=== PATIENT | female | born 1950 | race Asian ===

== ENCOUNTER 2017-09-03 13:46 | Outpatient (CLI) | payer MEDICARE, OTHER ==
--- NOTE | 2017-09-13 20:40 | Mammography Report ---
SCREENING MAMMOGRAM: 09/13/2017 INDICATION: A 67-year-old for screening. COMPARISON: The patient reports previous mammograms performed in 1996, which are not available for direct comparison. This will serve as a new baseline. TECHNIQUE: Routine CC and MLO projections were obtained of the breasts. FINDINGS: The breasts demonstrate fatty replacement bilaterally. A few punctate, typically benign calcifications are present, no suspicious masses, clustered microcalcifications, or regions of architectural distortion are identified. IMPRESSION: Benign FINDINGS. RECOMMENDATION: Routine annual screening unless otherwise clinically indicated. BIRADS CATEGORY - 2 BENIGN FINDINGS. STANDARD QUALIFYING STATEMENTS: 1. This examination was reviewed with the aid of Computer-Aided Detection (CAD). 2. A negative or benign imaging report should not delay biopsy if clinically suspicious findings are present. Consider surgical consultation if warranted. More than 5% of cancers are not identified by imaging. 3. Dense breasts may obscure an underlying neoplasm. TD: 09/13/2017 20:39
== END 2017-09-03 13:47 | disposition home or self-care (01) ==
LOC: DI.N 13:46
PROVIDERS: ATTEND Physician Assistant
DX: Z12.31 Encounter for screening mammogram for malignant neoplasm of breast (principal); Z80.3 Family history of malignant neoplasm of breast
CPT/HCPCS: 77067

== ENCOUNTER 2017-09-19 15:15 | Outpatient (CLI) | payer MEDICARE, OTHER ==
--- NOTE | 2017-09-23 17:00 | DEXA Report ---
DEXA SCAN: 09/19/2017 CLINICAL INDICATION: Postmenopausal. TECHNIQUE: Dual energy x-ray absorptiometry (DXA) was performed on a [employer] system. Regions measured are the AP spine, femoral neck, and, if needed, forearm. COMPARISON: None. In accordance with the International Society for Clinical Densitometry (ISCD) guidelines, data from previous exams may be reanalyzed using current recommendations and techniques. This is done to allow a more accurate basis for comparison with the current study. FINDINGS Data for the lumbar spine is as follows: REGION BMD (g/cm/cm) T-SCORE Z-SCORE L1 1.206 0.6 1.9 L2 1.443 2.0 3.3 L3 1.439 2.0 3.2 L4 1.254 0.4 1.7 L1-L4 1.340 1.3 2.6 NOTE: All evaluable vertebrae are used for classification. Data for the hip is as follows: REGION BMD (g/cm/cm) T-SCORE Z-SCORE Neck 1.044 0.0 1.3 TOTAL 1.049 0.3 1.3 NOTE: The femoral neck or total proximal femur, whichever is lowest, is used for classification. IMPRESSION: WHO CLASSIFICATION BASED ON THE INTERNATIONAL REFERENCE STANDARD IS NORMAL. FRACTURE RISK IS NOT INCREASED. RECOMMENDATION: Patients with diagnosis of osteoporosis or osteopenia should have regular bone mineral density assessment. For those eligible for Medicare, routine testing is allowed once every 2 years. Testing frequency can be increased for patients who have rapidly progressing disease or for those who are receiving medical therapy to restore bone mass. COMMENT World Health Organization (WHO) definitions for osteoporosis and osteopenia: NORMAL BMD: T-score at 1.0 or higher, fracture risk is low. OSTEOPENIA BMD: T-score between 1.0 and -2.5, fracture risk is increased. OSTEOPOROSIS BMD: T-score at 2.5 or lower, fracture risk high. National Osteoporosis Foundation recommends: 1. Obtain adequate dietary calcium (at least 1200 mg per day) and vitamin D ( 400-800 international units per day). 2. Participate, as appropriate, in regular weightbearing and muscle- strengthening exercise. 3. Avoid tobacco use and reduce alcohol and caffeine intake. 4. For more detailed information see the website at www.NOF.org. TD: 09/20/2017 11:47 [facility]
== END 2017-09-19 15:16 | disposition home or self-care (01) ==
LOC: DI 15:15
PROVIDERS: ATTEND Physician Assistant
DX: Z13.820 Encounter for screening for osteoporosis (principal); N95.8 Other specified menopausal and perimenopausal disorders
CPT/HCPCS: 77080

== ENCOUNTER 2018-10-27 10:21 | Outpatient (CLI) | payer MEDICARE, OTHER ==
--- NOTE | 2018-10-27 14:14 | Mammography Report ---
Reason: SCREENING MAMMO Procedure Date: 10/27/2018 Accession Number: [id number] / [id number] Procedure: MGN - Screening Mammo Dig Bilat CPT Code: FULL RESULT: EXAM: Screening Mammo Dig Bilat DATE: 10/27/2018 10:45 AM CLINICAL HISTORY: Screening examination. Family history of breast cancer in the mother at the age of 80. TECHNIQUE: (B) - Bilateral CC and MLO views were obtained. COMPARISON: 09/03/2017. PARENCHYMAL PATTERN: (A) - The breast(s) demonstrate(s) scattered fibroglandular densities. FINDINGS: There are no suspicious masses, calcifications, or areas of distortion. IMPRESSION: Negative examination. BI-RADS category 1. RECOMMENDATION: (ANNUAL) - Recommend routine annual screening mammography. BI-RADS CATEGORY: (1) - Negative. STANDARD QUALIFYING STATEMENTS: 1. This examination was not reviewed with the aid of Computer-Aided Detection (CAD). 2. A negative or benign imaging report should not preclude biopsy if clinically suspicious findings are present. 3. Dense breasts may obscure an underlying neoplasm. 4. This examination was reviewed without the aid of 3D breast imaging (tomosynthesis).
== END 2018-10-27 10:22 | disposition home or self-care (01) ==
LOC: DI.N 10:21
DX: Z12.31 Encounter for screening mammogram for malignant neoplasm of breast (principal); Z80.3 Family history of malignant neoplasm of breast
CPT/HCPCS: 77067

== ENCOUNTER 2021-06-22 10:44 | Outpatient (CLI) | payer MEDICARE, OTHER ==
--- NOTE | 2021-06-22 11:54 | DEXA Report ---
PROCEDURE: Dexa Spine and/or Hip INDICATIONS: POST MENOPAUSAL TECHNIQUE: Dual energy x-ray absorptiometry (DXA) was performed on a [employer] System. Regions measur ed are the AP Spine, femoral neck, and if needed forearm. COMPARISON: 09/19/2017. FINDINGS: Lumbar Spine: Bone Mineral Density 1.338 g/cm/cm,T score 1.3, there is interval 0.1% decrease in total lumbar [place] mineral density. Left Hip: Bone Mineral Density 1.066 g/cm/cm,T score 0.5, there is interval 1.6% increase in total left hip [place] mineral density. Left Femoral Neck: Bone Mineral Density 1.068 g/cm/cm, T score 0.2. (T score greater or equal to -1.0: NORMAL) (T score from -1.1 to -2.4: OSTEOPENIA) (T score less than or equal to -2.5 to: OSTEOPOROSIS) Impression: Normal bone mineral density. Patients with diagnosis of osteoporosis or osteopenia should have regular bone mineral density assess ment. For those eligible for Medicare, routine testing is allowed once every 2 years. Testing frequ ency can be increased for patients who have rapidly progressing disease or for those who are receivin g medical therapy to restore bone mass. Reviewed by: Curt Bee MD on 06/22/2021 11:53 AM PST Approved by: Curt Bee MD on 06/22/2021 11:53 AM PST Station ID: [id number]
== END 2021-06-22 10:45 | disposition home or self-care (01) ==
LOC: DI 10:44
PROVIDERS: ATTEND Physician Assistant
DX: Z13.820 Encounter for screening for osteoporosis (principal); Z78.0 Asymptomatic menopausal state; N95.8 Other specified menopausal and perimenopausal disorders

== ENCOUNTER 2021-08-01 10:49 | Outpatient (CLI) | payer MEDICARE, OTHER ==
--- NOTE | 2021-08-02 07:16 | Mammography Report ---
BILATERAL DIGITAL SCREENING MAMMOGRAM 3D/2D: 08/01/2021 CLINICAL: Family history of breast cancer. Routine screening. Comparison is made to exams dated: 10/27/2018 mammogram and 09/03/2017 mammogram - [facility]. There are scattered fibroglandular elements in both breasts. No significant masses, calcifications, or other findings are seen in either breast. There has been no significant interval change. IMPRESSION: NEGATIVE There is no mammographic evidence of malignancy. A 1 year screening mammogram is recommended. This exam was interpreted at Station ID: [id number]. NOTE: For mammograms, a report in lay terms will be sent to the patient. Approximately 15% of breast malignancies will not be visualized mammographically. In the management of a palpable breast mass, a negative mammogram must not discourage biopsy of a clinically suspicious lesion. Electronically Signed By: Burke Chapman M.D. slc/penrad:08/01/2021 13:42:34 ACR BI-RADS Category 1: Negative [id number] PARENCHYMAL PATTERN: (A) - The breast(s) demonstrate(s) scattered fibroglandular densities. BI-RADS CATEGORY: (1) - 1 RECOMMENDATION: (ANNUAL) - Recommend routine annual screening mammography. [id number] 1 year screening LATERALITY: (B)
== END 2021-08-01 10:50 | disposition home or self-care (01) ==
LOC: DI.N 10:49
PROVIDERS: ATTEND Physician Assistant
DX: Z12.31 Encounter for screening mammogram for malignant neoplasm of breast (principal); Z80.3 Family history of malignant neoplasm of breast